=== PATIENT | female | born 1955 | race African-American/Black ===

== ENCOUNTER → 2019-01-22 | Outpatient (CLI) | payer OTHER | LOC: CAT 08:35 | DX: Z13.6 Encounter for screening for cardiovascular disorders (principal); E78.00 Pure hypercholesterolemia, unspecified; I25.10 Atherosclerotic heart disease of native coronary artery without angina pectoris ==

== ENCOUNTER → 2021-03-16 | Outpatient (CLI) | payer OTHER | LOC: CAT 15:19 | PROVIDERS: ATTEND Internal Medicine | DX: Z13.6 Encounter for screening for cardiovascular disorders (principal) ==